=== PATIENT | male | born 1985 | race Caucasian/White ===

== ENCOUNTER 2022-02-23 16:09 | Emergency (ER) | payer BC ==
[2022-02-23] MEDS ORDERED: LIDOCAINE 1% MPF 5 ML VIAL ONE (16:30)
[2022-02-23] MEDS ORDERED: TETANUS & DIPHTHERIA TOX,ADULT 0.5 ML VIAL ONE (16:31)
--- NOTE | 2022-02-23 17:35 | EDPHYS ---
Physician Documentation [facility] Name: Alex Patel Jr Age: 36 yrs Sex: Male : 1985 Arrival Date: 02/23/2022 Time: 16:10 Bed 11 Private MD: Luis A Cavazos T ED Physician Declan Valera HPI: 02/23 19:51 This 36 yrs old Male presents to ER via Ambulatory with complaints of Finger Injury. kb 19:52 The patient has a laceration related to: was removing glass shower door and it broke kb occurred at home, and there are no complicating factors. The injury was accidental. The laceration(s) is(are) located on the dorsal aspect of middle phalanx of right middle finger. Onset: The symptoms/episode began/occurred just prior to arrival. Associated signs and symptoms: The patient has no apparent associated signs or symptoms. The patient has not experienced similar symptoms in the past. The patient has not recently seen a physician. Pt reports he was removing a shower door and it broke causing him to cut his finger. Historical: - Allergies: 16:15 No Known Allergies; ap3 - Home Meds: 16:15 Vyvanse oral [Active]; ap3 - PMHx: 16:19 None; ap3 - Immunization history:: Client reports receiving the 1st dose of the Covid vaccine, Last tetanus immunization: unknown. - Social history:: Smoking status: Patient reports use of chewing tobacco. ROS: 19:50 Constitutional: Negative for fever, chills, and weight loss. kb 19:50 Skin: Positive for laceration(s), of the dorsal aspect of middle phalanx of right middle finger. 19:50 All other systems are negative. Exam: 17:32 Constitutional: This is a well developed, well nourished patient who is awake, alert, kb and in no acute distress. Head/Face: Normocephalic, atraumatic. ENT: Moist Mucous membranes Respiratory: Respirations even and unlabored. No increased work of breathing. Talking in full sentences MS/ Extremity: Pulses equal, no cyanosis. Neurovascular intact. Full, normal range of motion. Neuro: Awake and alert, GCS 15, oriented to person, place, time, and situation. Moves all extremities. Normal gait. Psych: Awake, alert, with orientation to person, place and time. Behavior, mood, and affect are within normal limits. 17:32 Skin: injury, laceration(s), the wound is approximately 4 cm(s), of the dorsal aspect of middle phalanx of right middle finger, that can be described as clean, no foreign body, irregular, without bleeding. Vital Signs: 16:12 Pulse 79; Resp 18; Temp 98.9; Pulse Ox 100% ; Weight 111.58 kg; Height 6 ft. 2 in. ap3 (187.96 cm); Pain 1/10; 16:19 BP 138 / 86; ap3 17:22 BP 130 / 78; Pulse 72; Resp 16; Pulse Ox 100% on R/A; bm7 16:12 Body Mass Index 31.58 (111.58 kg, 187.96 cm) ap3 Laceration: 19:50 Wound Repair of 4cm ( 1.6in ) subcutaneous laceration to dorsal aspect of middle kb phalanx of right middle finger. Irregularly shaped.. Skin/tissue flap noted.. Distal neuro/vascular/tendon intact. Anesthesia: Wound infiltrated with 3 mls of 1% lidocaine. Wound prep: Extensive cleansing with betadine by me, Wound irrigation with saline by me. Skin closed with 11 5-0 Prolene using simple sutures and sterile technique. Patient tolerated well. MDM: 16:15 Patient medically screened. 16:15 Data reviewed: vital signs, nurses notes. Data interpreted: Pulse oximetry: on room air kb is 100 %. Interpretation: normal. 17:32 Counseling: I had a detailed discussion with the patient and/or guardian regarding: the kb historical points, exam findings, and any diagnostic results supporting the discharge/admit diagnosis, the need for outpatient follow up, a family practitioner, to return to the emergency department if symptoms worsen or persist or if there are any questions or concerns that arise at home. 02/23 16:16 Order name: Dressing - Wound; Complete Time: 16:27 kb 02/23 16:16 Order name: Gloves, Sterile; Complete Time: 16:27 kb 02/23 16:16 Order name: Prolene, Sutures; Complete Time: 16:27 kb 02/23 16:16 Order name: Setup Suture Tray; Complete Time: 16:28 kb 02/23 17:34 Order name: Finger Splint; Complete Time: 17:38 kb Administered Medications: 16:27 Drug: Tetanus-Diphtheria Toxoid Adult 0.5 ml {Destination Sign Repairer: [employer]. Exp: bm7 11/24/2023. Lot #: [id number]. } Route: IM; Site: left deltoid; 17:42 Follow up: Response: No adverse reaction [facility] 17:08 Drug: Lidocaine (1 %) 1 vials {Note: BY [employer].} Volume: 20 ml; Route: Infiltration; Site: bm7 affected area; Disposition Summary: 02/23/22 17:35 Discharge Ordered Location: Home kb Condition: Stable kb Diagnosis - Laceration without foreign body of right middle finger without damage to nail kb Followup: kb - With: Emergency Department - When: As needed - Reason: Worsening of condition Followup: kb - With: Private Physician - When: 2 - 3 days - Reason: Recheck today's complaints, Continuance of care, Re-evaluation by your physician Discharge Instructions: - Discharge Summary Sheet kb - Laceration Care, Adult, [id number] kb Forms: - Medication Reconciliation Form kb - Thank You Letter kb - Antibiotic Education kb - Prescription Opioid Use kb Signatures: Rebekah Manley, GENERATOR WORKER-C GAVIN-Tila Griggs RN RN ap3 Shruthi Valenzuela, RN RN bm7 Corrections: (The following items were deleted from the chart) 16:17 16:15 Home Meds: vivance; ap3 ap3 20:15 19:52 Pt reports he ws removing a shower door. kb kb
--- NOTE | 2022-02-23 17:35 | ER ---
Nurse's Notes [facility] Name: Alex Patel Jr Age: 36 yrs Sex: Male : 1985 Arrival Date: 02/23/2022 Time: 16:10 Bed 11 Private MD: Luis A Cavazos T Diagnosis: Laceration without foreign body of right middle finger without damage to nail Presentation: 02/23 16:12 Chief complaint: Patient states: he was demolishing his bathroom shower, when he cut ap3 his finger on the glass door. Patient presents with laceration to the right middle finger. bleeding is controlled. Coronavirus screen: At this time, the client does not indicate any symptoms associated with coronavirus-19. Ebola Screen: No symptoms or risks identified at this time. Initial Sepsis Screen: Does the patient meet any 2 criteria? No. Patient's initial sepsis screen is negative. Does the patient have a suspected source of infection? No. Patient's initial sepsis screen is negative. Risk Assessment: Do you want to hurt yourself or someone else? Patient reports no desire to harm self or others. Onset of symptoms was February 23, 2022. 16:12 Method Of Arrival: Ambulatory ap3 16:12 Acuity: UDAY 4 ap3 Triage Assessment: 16:17 General: Appears in no apparent distress. Behavior is calm, cooperative. Pain: ap3 Complains of pain in right middle finger. Neuro: Level of Consciousness is awake, alert, obeys commands, Oriented to person, place, time. Cardiovascular: Patient's skin is warm and dry. Respiratory: Airway is patent Respiratory effort is even, unlabored. Musculoskeletal: Range of motion: intact in DIP of right middle finger and PIP of right middle finger. Injury Description: Laceration sustained to right middle finger a small amount of bleeding noted at this time. Historical: - Allergies: 16:15 No Known Allergies; ap3 - Home Meds: 16:15 Vyvanse oral [Active]; ap3 - PMHx: 16:19 None; ap3 - Immunization history:: Client reports receiving the 1st dose of the Covid vaccine, Last tetanus immunization: unknown. - Social history:: Smoking status: Patient reports use of chewing tobacco. Screenin:18 Abuse screen: Denies threats or abuse. Nutritional screening: No deficits noted. ap3 Tuberculosis screening: No symptoms or risk factors identified. 16:28 Fall Risk None identified. bm7 Assessment: 17:00 Reassessment: Patient and/or family updated on plan of care and expected duration. Pain bm7 level reassessed. Patient is alert, oriented x 3, equal unlabored respirations, skin warm/dry/pink. 17:09 Reassessment: FOUNTAIN WAITRESS/WAITER AT BEDSIDE TO SUTURE. bm7 Vital Signs: 16:12 Pulse 79; Resp 18; Temp 98.9; Pulse Ox 100% ; Weight 111.58 kg; Height 6 ft. 2 in. ap3 (187.96 cm); Pain 1/10; 16:19 BP 138 / 86; ap3 17:22 BP 130 / 78; Pulse 72; Resp 16; Pulse Ox 100% on R/A; bm7 16:12 Body Mass Index 31.58 (111.58 kg, 187.96 cm) ap3 ED Course: 16:10 Patient arrived in ED. am2 16:10 Luis A Cavazos MD is Private Physician. am2 16:11 [facility]C [facility] kb 16:11 Declan Valera MD is Attending Physician. kb 16:15 Triage completed. ap3 16:18 Arm band placed on left wrist. ap3 16:20 Shruthi Valenzuela, RN is Primary Nurse. bm7 16:28 Patient has correct armband on for positive identification. Call light in reach. Client bm7 placed on continuous cardiac and pulse oximetry monitoring. NIBP monitoring applied. 16:28 Assist provider with laceration repair on right middle finger using sutures. Set up bm7 tray. Performed by Rebekah DOZIER Dressed with 4X4s, Patient tolerated well. 17:00 No apparent distress. Resting quietly. Awaiting ED provider evaluation. bm7 17:41 Patient did not have IV access during this emergency room visit. bm7 Administered Medications: 16:27 Drug: Tetanus-Diphtheria Toxoid Adult 0.5 ml {Hand Washer: [employer]. Exp: bm7 11/24/2023. Lot #: [id number]. } Route: IM; Site: left deltoid; 17:42 Follow up: Response: No adverse reaction bm7 17:08 Drug: Lidocaine (1 %) 1 vials {Note: BY FOUNTAIN WAITRESS/WAITER.} Volume: 20 ml; Route: Infiltration; Site: bm7 affected area; Medication: 16:28 Vaccine Information Statement (VIS) provided today. Questions and/or concerns bm7 addressed. VIS edition date: February 23, 2022. Outcome: 17:35 Discharge ordered by MD. ramirez 17:41 Discharged to home ambulatory, with family. bm7 17:41 Condition: improved 17:41 Discharge instructions given to patient, family, Instructed on discharge instructions, follow up and referral plans. wound care, Demonstrated understanding of instructions, follow-up care, wound care. 17:42 Patient left the ED. bm7 Signatures: Rebekah Manley, LABEL PRINTER-C LABEL PRINTER-CkTila Do am2 Tila Marcos, RN RN ap3 Shruthi Valenzuela, RN RN bm7 Corrections: (The following items were deleted from the chart) 16:17 16:15 Home Meds: vivance; ap3 ap3
[2022-02-23 18:22] VITALS: TEMP 98.9; O2SAT 100
[2022-02-23 18:26] VITALS: BP 130/78
== END 2022-02-23 17:42 | disposition home or self-care (01) ==
LOC: ER 16:09
PROC: 0JQJ0ZZ Repair Right Hand Subcutaneous Tissue and Fascia, Open Approach (ICD-10-PCS; principal; 2022-02-23)
DX: S61.212A Laceration without foreign body of right middle finger without damage to nail, initial encounter (principal); Z23 Encounter for immunization
CPT/HCPCS: 90471; 90714; 99283